=== PATIENT | male | born 2000 | race Caucasian/White ===

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

== ENCOUNTER 2022-07-03 20:03 | Emergency (ER) | payer OTHER, SELFPAY ==
[2022-07-03 20:32] VITALS: BP 131/73; PULSE 75; RESP 16; TEMP 37.1; O2SAT 98; BMI 29.1
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
[2022-07-03] MEDS: Bacitracin Oint 14 GM TUBE 1 APPL TOPICAL (20:58)
--- NOTE | 2022-07-03 21:32 | PC.NURSE ---
pt a&o,no sob or chest pain. Review discharge instructions with pt. Pt verbal understanding. Notified ELHAM Puente
== END 2022-07-03 21:35 | disposition home or self-care (01) ==
PROVIDERS: Emergency Provider Internal Medicine; PCP Pediatrics
DX: S30.812A Abrasion of penis, initial encounter (principal); X58.XXXA Exposure to other specified factors, initial encounter; Y93.9 Activity, unspecified; Y92.89 Other specified places as the place of occurrence of the external cause; Y99.9 Unspecified external cause status
CPT/HCPCS: 99283